=== PATIENT | female | born 1965 | race Caucasian/White ===

== ENCOUNTER → 2019-08-27 13:09 | Outpatient (CLI) | payer OTHER, SELFPAY ==
[2019-08-27 14:55] LABS: Basophils # 0.1 K/mm3 (0-0.2); Basophils % 0.8 % (0.1-2.0); Eosinophils # 0.1 K/mm3 (0.0-0.4); Eosinophils % 1.4 % (0.1-12.0); Hematocrit 45.4 % (37.0-47.0); Hemoglobin 14.8 g/dL (12.2-16.2); Lymphocytes # 2.1 K/mm3 (0.7-4.5); Lymphocytes % 26.3 % (10-50); Mean Corpuscular HGB Conc 32.5 g/dL (31.8-35.4); Mean Corpuscular Hemoglobin 29.3 pg (27.0-31.2); Mean Platelet Volume 8.6 fl (7.4-10.4); Monocytes # 0.5 K/mm3 (0.1-1.0); Monocytes % 6.1 % (1.7-9.3); Neutrophils # 5.3 K/mm3 (1.8-7.8); Neutrophils % 65.4 % (37.0-80.0); Platelet Count 298 K/mm3 (142-424); Red Blood Count 5.05 M/mm3 (4.20-5.40); Red Cell Distribution Width 13.5 % (11.5-17.5); White Blood Count 8.2 K/mm3 (4.8-10.8)
[2019-08-27 15:44] LABS: Alanine Aminotransferase 60 U/L (12-78); Albumin Level 3.7 gm/dL (3.4-5.0); Albumin/Globulin Ratio 1.1 (1.1-1.8); Aspartate Amino Transferase 36 U/L (15-37); Bilirubin,Total 0.3 mg/dL (0.2-1.0); Blood Urea Nitrogen 10 mg/dL (7-18); Carbon Dioxide 22 mmol/L (21.0-32.0); Chloride 105 mmol/L (98-107); Cholesterol 262 mg/dL (140-200); Creatinine,Serum 0.62 mg/dL (0.55-1.02); Estimated Glomerular Filt Rate 100 ml/min (>60); GFR (African American) 120 ML/MIN (>60); Globulin 3.3 gm/dl (1.3-3.2); Glucose 107 mg/dL (74-106); HDL Cholesterol 52 mg/dL (29-89); LDL Cholesterol 188 mg/dL (0-130); Sodium 139 mmol/L (136-145); Triglycerides 108 mg/dL (30-200); VLDL Cholesterol 22 mg/dL (0-40)
[2019-08-27 15:45] LABS: Alkaline Phosphatase 76 U/L (46-116); T4 (Thyroxine) 9.9 ug/dl (4.7-13.3); Thyroid Stimulating Hormone 1.78 uIU/ml (0.358-3.740)
[2019-08-27 17:19] LABS: Hemoglobin A1C 5.8 % (0.0-7.0)
[2019-08-29 06:28] LABS: Vitamin B12 328 pg/mL (232-1245); Vitamin D 25 Hydroxy 16.2 ng/mL (30.0-100.0)
== END ==
PROVIDERS: Visit Provider Nurse Practitioner Family
DX: J44.9 Chronic obstructive pulmonary disease, unspecified (principal); R20.0 Anesthesia of skin; R20.2 Paresthesia of skin; E78.5 Hyperlipidemia, unspecified; E66.9 Obesity, unspecified; E55.9 Vitamin D deficiency, unspecified
CPT/HCPCS: 36415; 80053; 80061; 82607; 82652; 83036; 84436; 84443; 85025

== ENCOUNTER → 2019-09-08 09:59 | Outpatient (CLI) | payer OTHER, SELFPAY | PROVIDERS: PCP Nurse Practitioner Family; Visit Provider Nurse Practitioner Family | DX: J44.9 Chronic obstructive pulmonary disease, unspecified (principal); R06.02 Shortness of breath | CPT/HCPCS: 94060; 94640; 94726; 94729 ==

== ENCOUNTER → 2019-09-10 14:13 | Outpatient (CLI) | payer OTHER, SELFPAY ==
[2019-09-10 15:35] LABS: Amphetamine/Metha Screen,Urine Negative ng/mL (<1000); Barbiturates Screen,Urine Negative ng/mL (<200); Benzodiazepines Screen,Urine Negative ng/mL (<200); Cannabinoid Screen,Urine Negative ng/mL (<50); Cocaine Screen,Urine Negative ng/mL (<300); Methadone Screen,Urine Negative ng/mL (<300); Opiate Screen,Urine Positive ng/mL (<300); Phencyclidine Screen,Urine Negative ng/mL (<25)
[2019-09-17 19:36] LABS: Codeine Negative (Cutoff=100); Hydrocodone Positive (.); Hydromorphone Positive (.); Morphine Negative (Cutoff=100)
[2019-09-18 16:57] LABS: Hydrocodone Confirm 1474 ng/mL (Cutoff=100); Hydromorphone Confirm 142 ng/mL (Cutoff=100); Opiates Positive (.)
== END ==
PROVIDERS: Visit Provider Nurse Practitioner Family
DX: E66.9 Obesity, unspecified (principal); J44.1 Chronic obstructive pulmonary disease with (acute) exacerbation
CPT/HCPCS: 80305; 80361; G0480